=== PATIENT | female | born 1990 | race Caucasian/White ===

== ENCOUNTER 2018-08-12 11:11 | Outpatient (REF) | payer BC, SELFPAY ==
[2018-08-13 13:16] LABS: Chlamydia Result Negative; GC Result Negative; Specimen Description URINE
== END 2018-08-12 11:31 ==
LOC: LBN 11:11
PROVIDERS: PCP Family Medicine; Visit Provider Family Medicine
DX: Z11.3 Encounter for screening for infections with a predominantly sexual mode of transmission (principal)
CPT/HCPCS: 87491; 87591

== ENCOUNTER 2019-09-15 07:00 | Outpatient (CLI) | payer BC, SELFPAY ==
[2019-09-15 13:54] LABS: Anion Gap 8.7 mmol/L (3-11); BUN 11 mg/dL (7-18); CO2 31.3 mmol/L (21.0-32.0); Calcium 9.1 mg/dL (8.5-10.1); Calculated LDL 90 mg/dL; Chloride 100 mmol/L (98-107); Cholesterol 182 mg/dL (<200); Glucose 95 mg/dL (74-106); HDL Cholesterol 85 mg/dL (40-60); Potassium 3.8 mmol/L (3.5-5.1); Sodium 140 mmol/L (136-145); Triglyceride 37 mg/dL (<150)
== END 2019-09-15 07:20 ==
PROVIDERS: PCP Family Medicine; Visit Provider Nurse Practitioner Family
DX: Z00.00 Encounter for general adult medical examination without abnormal findings (principal); F32.9 Major depressive disorder, single episode, unspecified; Z13.220 Encounter for screening for lipoid disorders
CPT/HCPCS: 36415; 80048; 80061

== ENCOUNTER 2020-09-16 12:38 | Outpatient (REF) | payer BC, SELFPAY ==
--- NOTE | 2020-09-16 11:50 | PAPFT_PTH ---
PATIENT: JUANITA COLLIER LOC: [facility] U#:[id number] AGE/SX: 30/F ROOM: RE09/16/[address]: Robert Hagan NP : 1990 BED: DIS: 09/16/2020 SPEC #: [id number] RECD: 09/16/20 13:08 STATUS: MARIS ARTHUR #: [id number] MALORIE: 09/16/20 11:[address]: Robert Hagan DEPT: [facility] Cytology RECD BY: Akosua Mejia ENTERED: 09/16/20 13:09 SP TYPE: PAPFT OT DR: Cherise Lion MD Tissues: 1 - CX/ENDOCX FOR PAP SMEARS Procedures: PAP THIN PREP/[facility] Screening Comments: [id number]
== END 2020-09-16 12:58 ==
LOC: LBN 12:38
PROVIDERS: PCP Family Medicine; Visit Provider Nurse Practitioner Family
DX: Z12.4 Encounter for screening for malignant neoplasm of cervix (principal)
CPT/HCPCS: 88142